=== PATIENT | female | born 1985 | race Two or more races ===

== ENCOUNTER 2016-08-01 10:11 | Emergency (ER) | payer MEDICAID ==
[~2016-08-01] VITALS: Ht 157.5 cm; Wt 62.6 kg
[2016-08-01 10:12] VITALS: BP 122/79
[2016-08-01] MEDS ORDERED: IBUPROFEN 200 MG TABLET PO ONE (11:30)
[2016-08-01] MEDS ORDERED: IBUPROFEN 200 MG TABLET ONE (11:30)
== END 2016-08-01 11:57 | disposition home or self-care (01) ==
LOC: ED 11:51
DX: S93.492A Sprain of other ligament of left ankle, initial encounter (principal); X50.1XXA Overexertion from prolonged static or awkward postures, initial encounter; Y93.89 Activity, other specified; Y92.89 Other specified places as the place of occurrence of the external cause; Y99.9 Unspecified external cause status
CPT/HCPCS: 99284

== ENCOUNTER 2016-10-04 09:37 | Emergency (ER) | payer MEDICAID ==
[~2016-10-04] VITALS: Ht 167.6 cm; Wt 64.2 kg
[2016-10-04] MEDS ORDERED: RABIES VACCINE /PF 2.5 UNITS IM-VACC ONE (10:47)
[2016-10-04] MEDS ORDERED: SODIUM CHLORIDE FLUSH 10ML SYR IVF ONE (11:00)
[2016-10-04] MEDS ORDERED: RABIES IMMUNE GLOBULIN/PF 150 UNITS/ML, 2ML IM ONE (11:00)
[2016-10-04] MEDS ORDERED: HYDROmorphone 1 MG/ML, 1ML IVPush PRN (11:00)
[2016-10-04] MEDS ORDERED: ONDANSETRON 2MG/ML, 2ML IVPush ONE (11:00)
[2016-10-04] MEDS ORDERED: DIPH,PERTUSS(ACELL),TET VAC/PF 0.5 ML IM-VACC ONE ×2 (11:00→11:14)
[2016-10-04] MEDS ORDERED: AMPICILLIN/SULBACTAM 1,500 MG in SODIUM CHLORIDE 0.9% 50 ML IV ONE (11:07)
[2016-10-04] MEDS ORDERED: ONDANSETRON 2MG/ML, 2ML ONE (11:14)
[2016-10-04] MEDS ORDERED: HYDROmorphone 1 MG/ML, 1ML ONE (11:14)
[2016-10-04 11:20] LABS: BLOOD UREA NITROGEN 11 mg/dL (7-18)
[2016-10-04] MEDS ORDERED: SODIUM CHLORIDE 0.9%, 500ML IVBOLUS ONE (12:00)
[2016-10-04 12:31] VITALS: BP 120/79
== END 2016-10-04 13:44 | disposition home or self-care (01) ==
LOC: ED 11:39
DX: S51.852A Open bite of left forearm, initial encounter (principal); Z88.8 Allergy status to other drugs, medicaments and biological substances; W54.0XXA Bitten by dog, initial encounter; Y93.89 Activity, other specified; Y92.89 Other specified places as the place of occurrence of the external cause; Y99.8 Other external cause status
CPT/HCPCS: 36415; 73090; 80048; 82040; 82550; 90375; 90471; 90472; 90675; 90715; 96361; 96365; 96372; 96375; 99285; J0295; J1170; J2405; J7040

== ENCOUNTER 2016-10-14 11:56 | Emergency (ER) | payer MEDICAID ==
[~2016-10-14] VITALS: Ht 167.6 cm; Wt 63.6 kg
[2016-10-14 11:57] VITALS: BP 128/90
[2016-10-14] MEDS ORDERED: RABIES VACCINE /PF 2.5 UNITS IM-VACC ONE (12:30)
== END 2016-10-14 13:06 | disposition home or self-care (01) ==
LOC: ED 12:56
DX: S50.872D Other superficial bite of left forearm, subsequent encounter (principal); Z88.8 Allergy status to other drugs, medicaments and biological substances; W54.0XXD Bitten by dog, subsequent encounter; Y99.8 Other external cause status; Y93.89 Activity, other specified; Y92.89 Other specified places as the place of occurrence of the external cause
CPT/HCPCS: 90471; 90675; 96372; 99283

== ENCOUNTER 2017-01-03 08:50 | Emergency (ER) | payer MEDICAID ==
[~2017-01-03] VITALS: Ht 165.1 cm; Wt 60.8 kg
[2017-01-03 08:51] VITALS: BP 144/107
[2017-01-03] MEDS ORDERED: HYDROmorphone 1 MG/ML, 1ML ONE (09:18)
[2017-01-03] MEDS ORDERED: HYDROmorphone 1 MG/ML, 1ML IM ONE (09:30)
== END 2017-01-03 10:16 | disposition home or self-care (01) ==
LOC: ED 09:30
DX: S20.211A Contusion of right front wall of thorax, initial encounter (principal); S90.122A Contusion of left lesser toe(s) without damage to nail, initial encounter; W03.XXXA Other fall on same level due to collision with another person, initial encounter; Y93.61 Activity, american tackle football; Y92.39 Other specified sports and athletic area as the place of occurrence of the external cause; Y99.8 Other external cause status
CPT/HCPCS: 71020; 73630; 96372; 99284; J1170

== ENCOUNTER 2017-01-07 12:50 | Emergency (ER) | payer MEDICAID ==
[~2017-01-07] VITALS: Ht 165.1 cm; Wt 62.4 kg
[2017-01-07 12:54] VITALS: BP 130/78
[2017-01-07] MEDS ORDERED: KETOROLAC 30 MG/1 ML ONE (13:39)
[2017-01-07] MEDS ORDERED: KETOROLAC 30 MG/1 ML IM ONE (14:00)
== END 2017-01-07 14:20 | disposition home or self-care (01) ==
LOC: ED 14:14
DX: S20.211A Contusion of right front wall of thorax, initial encounter (principal); F17.210 Nicotine dependence, cigarettes, uncomplicated; X58.XXXA Exposure to other specified factors, initial encounter; Y93.89 Activity, other specified; Y92.89 Other specified places as the place of occurrence of the external cause; Y99.8 Other external cause status
CPT/HCPCS: 71020; 96372; 99284; J1885

== ENCOUNTER 2017-09-29 09:31 | Emergency (ER) | payer MEDICAID ==
[~2017-09-29] VITALS: Ht 165.1 cm; Wt 56.1 kg
[2017-09-29 09:43] VITALS: BP 131/85
[2017-09-29] MEDS ORDERED: DIPH,PERTUSS(ACELL),TET VAC/PF 0.5 ML IM-VACC ONE ×2 (10:17→10:30)
[2017-09-29] MEDS ORDERED: LIDOCAINE-MPF 2%, 2ML ONE (10:17)
[2017-09-29] MEDS ORDERED: LIDOCAINE 2%, 20ML SQ ONE (10:30)
== END 2017-09-29 11:49 | disposition home or self-care (01) ==
LOC: ED 11:40
DX: S61.213A Laceration without foreign body of left middle finger without damage to nail, initial encounter (principal); W26.0XXA Contact with knife, initial encounter; Y93.89 Activity, other specified; Y92.098 Other place in other non-institutional residence as the place of occurrence of the external cause; Y99.8 Other external cause status
CPT/HCPCS: 12041; 90471; 90715; 99284; J3490